=== PATIENT | male | born 2000 | race Caucasian/White ===

== ENCOUNTER 2020-04-13 13:58 | Emergency (ER) | payer BC, SELFPAY ==
--- NOTE | ~2020-04-13 | XR_ITS ---
EXAMINATION: XR abdomen/kub 1V DATE: 04/13/2020 16:24 INDICATION: Left abdominal pain. TECHNIQUE: A supine view of the abdomen on 2 radiographs was obtained. COMPARISON: CT abdomen and pelvis 04/13/2020 FINDINGS: There are no dilated loops of bowel. There is contrast in the kidneys, right ureter, and bl adder. There is a delay left-sided contrast nephrogram. IMPRESSION: 1. Delayed left-sided contrast nephrogram, consistent with ureteral obstruction. Reviewed, dictated and finalized at location A. IMPRESSION: 1. Delayed left-sided contrast nephrogram, consistent with ureteral obstruction .
--- NOTE | ~2020-04-13 | CT_ITS ---
EXAMINATION: CT abdomen pelvis w con DATE: 04/13/2020 15:53 INDICATION: Left lower quadrant abdominal pain radiating to the testes. TECHNIQUE: Computed tomography (CT) of the abdomen and pelvis was performed with 100 mL Omnipaque 350 intravenous contrast. Automated exposure control and iterative reconstruction technique were employe d. The dose-length product was 920.20 mGy-cm. COMPARISON: None. FINDINGS: The visualized portions of the lung bases are clear without pneumonia or pleural effusion. The heart size is normal. No pericardial effusion. The liver, gallbladder, spleen, pancreas, adrenal glands, and right kidney are normal. There is a delayed left-sided contrast nephrogram. There is a 5 mm stone in left kidney. There is moderate left hydronephrosis and hydroureter. There is a 7 mm stone at left ureterovesicular junction. There are no dilated loops of bowel. The appendix is normal. Ther e are no pathologically enlarged lymph nodes. There is no free intraperitoneal fluid. 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 There is 5 mm anterolisthesis of L5 on S1. There is mild thoracolumbar spondylosis. IMPRESSION: 1. 7 mm stone at left ureterovesicular junction with moderate left hydronephrosis and hydroureter. 2. 5 mm nonobstructing left kidney stone. Reviewed, dictated and finalized at location A. IMPRESSION: 1. 7 mm stone at left ureterovesicular junction with moderate left hydronephros is and hydroureter. 2. 5 mm nonobstructing left kidney stone.
[2020-04-13 14:19] VITALS: BP 142/87; PULSE 50; RESP 18; TEMP 36.2; O2SAT 99
[2020-04-13 14:43] LABS: Basophils Absolute Auto 0.1 K/mm3 (0.0-0.1); Basophils Percent Auto 0.5 % (0.2-1.2); Eosinophils Percent Auto 0.3 % (0-4.4); Hematocrit 41.8 % (42.0-52.0); Hemoglobin 14.6 g/dL (14.0-18.0); Immature Granulocyte Absolute 0.05 K/mm3 (0.00-0.031); Immature Granulocyte Percent A 0.4 % (0-0.5); Lymphocytes Absolute Auto 1.42 K/mm3 (0.9-3.2); Lymphocytes Percent Auto 10.4 % (18.3-44.2); Mean Corpuscular HGB Conc 34.9 g/dl (32-36); Mean Corpuscular Hemoglobin 28.7 pg (26-34); Mean Corpuscular Volume 82.3 fl (80-100); Mean Platelet Volume 9.4 fl (7.4-10.4); Monocytes Absolute Auto 0.6 K/mm3 (0.1-0.6); Monocytes Percent Auto 4.1 % (2.6-8.5); Neutrophils Absolute Auto 11.5 K/mm3 (1.3-6.7); Neutrophils Percent Auto 84.3 % (45.5-73.1); Platelet Count Result 232 k/mm3 (150-375); Red Blood Count 5.08 M/mm3 (4.6-6.20); Red Cell Distribution Width 12.7 % (11.5-14.5); White Blood Count 13.6 K/mm3 (4.5-10.0)
[2020-04-13 14:50] LABS: Add Urine Microscopic? YES; Amorphous Sediment Urine Few; Appearance Urine Turbid (Clear); Bilirubin Urine Negative (Negative); Blood Urine 2+ (Negative); Color Urine Yellow (Yellow); Glucose Urine UA Negative (Negative); Ketones Urine Negative (Negative); Leukocyte Esterase Ur Negative LEU/UL (Negative); Mucus Urine Rare /lpf; Nitrate Urine Negative (Negative); Protein Urine Negative (Negative); RBC Urine >75 /hpf (0-2); Specific Grav Ur 1.017 (1.001-1.035); Urobilinogen Urine Negative mg/dL (<2.0)
[2020-04-13 14:54] LABS: Alanine Aminotransferase 34 U/L (4-50); Albumin Level 4.7 g/dL (3.5-5.1); Alkaline Phosphatase 75 U/L (38-126); Anion Gap 10 mmol/L (8-16); Aspartate Amino Transferase 29 U/L (17-59); Bilirubin,Total 0.6 mg/dL (0.2-1.3); Blood Urea Nitrogen 9 mg/dL (9-20); Calcium 9.3 mg/dL (8.4-10.2); Carbon Dioxide 26 mmol/L (22-30); Chloride 101 mmol/L (98-107); Estimated CRCL calculation 109 ml/min; Estimated Glomerular Filt Rate > 60; Glucose 122 mg/dL (75-110); Lipase 17 U/L (23-300); Potassium 3.8 mmol/L (3.4-5.0); Sodium 137 mmol/L (137-145)
--- NOTE | 2020-04-13 15:06 | ED.ABDPAIN ---
HPI - Abdominal Pain General Chief Complaint: Abdominal Pain Stated Complaint: abd pain/testicle pain Time Seen by Provider: 04/13/20 14:44 History of Present Illness HPI narrative: Pain in the right inguinal region radiating into the left testicle since this morning. 10 in severity. Associated with nausea, frequent urination, cloudy urine. He has never had similar symptoms before. No fever, discharge. Related Data Allergies Allergy/AdvReac Type Severity Reaction Status Date / Time No Known Allergies Allergy Verified 04/13/20 14:22 Review of Systems Review of Systems: All systems reviewed & are unremarkable except as noted in HPI and below Constitutional: Constitutional: Denies fever(s) Cardiovascular: Cardiovascular: Denies chest pain Respiratory: Respiratory: Denies dyspnea Gastrointestinal: Gastrointestinal: Reports abdominal pain Genitourinary: Genitourinary: Denies genital lesions, Denies dysuria, Denies penile discharge, Reports testicular pain and Reports urinary frequency Musculoskeletal: Musculoskeletal: Denies back pain Neurologic: Denies dizziness and Denies weakness [facility] Social History Social History Gender identity (if verbalized by the patient): Male Exam Const: General: healthy appearing, no acute distress and alert Orientation/consciousness: patient oriented x3 HENMT: Head: normal to inspection Neck: Neck: normal visual inspection and no lymphadenopathy Chest: Chest palpation & inspection: no tenderness Resp: Effort & Inspection: normal respiratory effort Auscultation: clear to auscultation bilaterally, no rales, no rhonchi and no wheezes Cardio: Jugular venous distension: no JVD Rate: regular rate Rhythm: regular rhythm Heart sounds: no murmurs GI: Inspection: non-distended GI Palp: Yes Soft to palpation and No Tenderness to palpation present (GI) : Male General Exam: Yes normal external exam Penis: Yes normal penis and Yes circumcised Scrotum: scrotum normal Testes: Testes normal, no testicular swelling and no testicular tenderness Skin: General skin exam: normal color Neuro: General: patient oriented x3 and moves all extremities Speech: normal speech Extrem: General: no edema Psych: Appearance: well kempt Affect: normal affect Course Vital Signs Vital signs: Vital Signs Temperature 36.2 C L 04/13/20 14:19 Pulse Rate 50 L 04/13/20 14:19 Respiratory Rate 18 04/13/20 14:19 Blood Pressure 142/87 H 04/13/20 14:19 Pulse Oximetry 99 04/13/20 14:19 Temperature 36.2 C L 04/13/20 14:19 Pulse Rate 68 04/13/20 17:05 Respiratory Rate 16 04/13/20 17:05 Blood Pressure 116/75 04/13/20 17:05 Pulse Oximetry 100 04/13/20 17:05 MDM - Abdominal Pain MDM Narrative Medical decision making narrative: He has a rather large stone in the distal ureter. Given to position of the stone and his tolerance of the pain I believe that he is a good candidate for a trial of passage at home. I have discussed this with him and will provide follow-up information for a urologist should he need it. Differential Diagnosis Differential diagnosis: Likely calculus of kidney and other (UTI, urethritis) Medical Records Attestation: I reviewed the patient's medical records. Lab Data Attestation: I reviewed the patient's lab results. Result diagrams: 04/13/20 14:37 04/13/20 14:37 Labs: Lab Results 04/13/20 04/13/20 04/13/20 Range/Units 14:37 14:37 14:37 WBC 13.6 H (4.5-10.0) K/mm3 RBC 5.08 (4.6-6.20) M/mm3 Hgb 14.6 (14.0-18.0) g/dL Hct 41.8 L (42.0-52.0) % MCV 82.3 (80-100) fl MCH 28.7 (26-34) pg MCHC 34.9 (32-36) g/dl RDW 12.7 (11.5-14.5) % Plt Count 232 (150-375) k/mm3 MPV 9.4 (7.4-10.4) fl Immature Gran % (Auto) 0.4 (0-0.5) % Neut % (Auto) 84.3 H (45.5-73.1) % Lymph % (Auto) 10.4 L (18.3-44.2) % Wilson % (
[2020-04-13] MEDS: KETOROLAC 30 MG/ML VIAL (*BKC) IV PUSH (16:04)
[2020-04-13] MEDS: SODIUM CHLORIDE 0.9% IV 1,000 ML 999 ML IV CONT (16:04)
[2020-04-13 17:05] VITALS: BP 116/75; PULSE 68; RESP 16; O2SAT 100
[2020-04-13] MEDS: TAMSULOSIN HCL 0.4 MG CAPSULE PO (17:05)
== END 2020-04-13 17:06 | disposition home or self-care (01) ==
PROVIDERS: Emergency Medicine; Emergency Provider Emergency Medicine
DX: N13.2 Hydronephrosis with renal and ureteral calculous obstruction (principal)
CPT/HCPCS: 36415; 74018; 74177; 80053; 81001; 83690; 85025; 87086; 96361; 96374; 99284; A9270; J1885; J7030; Q9967